=== PATIENT | female | born 1965 | race Caucasian/White ===

== ENCOUNTER 2024-10-14 18:59 | Emergency (ER) | payer MEDICARE, OTHER, SELFPAY ==
[2024-10-14 19:17] LABS: Hematocrit 33.2 % (37.0-47.0); Hemoglobin 10.4 g/dL (12.0-16.0); Mean Corp Hgb Conc. 31.3 g/dL (33.0-37.0); Mean Corpuscular Volume 91.5 fL (81.0-99.0); Nucleated Red Blood Cells % 0 %; Platelet Count 248 10^3/uL (130-400); Red Cell Dist. Width 15.1 % (11.5-14.5)
[2024-10-14 19:43] LABS: ALT (SGPT) < 10 U/L (0-35); AST (SGOT) 14 U/L (14-36); Albumin 3.7 g/dl (3.5-5.0); Alkaline Phosphatase 66 U/L (38-126); Blood Urea Nitrogen 18 mg/dl (7-17); Calcium 9.3 mg/dl (8.4-10.2); Carbon Dioxide 29 mmol/L (22-30); Glucose 99 mg/dl (70-99); Total Protein 6.6 g/dl (6.3-8.2); eGFR > 60.00
[2024-10-14 19:48] LABS: Chloride 108 mmol/L (98-107); Potassium 4.6 mmol/L (3.5-5.1); Sodium 138 mmol/L (135-145)
[2024-10-14 22:12] VITALS: BP 127/95
[2024-10-14 23:00] VITALS: BP 119/90
[2024-10-14 23:08] VITALS: BMI 26.7
[2024-10-15] VITALS: BP 131/98
--- NOTE | 2024-10-15 00:06 | ED.GENMED ---
History of Present Illness
General
Chief Complaint: Heart Rate Problem
Source: patient
Exam Limitations: none
Time Seen by Provider: 10/14/24 23:53
Nursing documentation reviewed up to this point in time: agreed with
History of Present Illness
History of Present Illness:
59-year-old female past medical history of hypertension hyperlipidemia, Heath's disease, diabetes presenting to the emergency department today with concerns of elevated heart rate dyspnea on exertion over the past week or 2 especially worsened
today missed a dose of Eliquis and metoprolol last night. Manager Environmental is from [place]. Denies any specific chest pain.
Past History
Past History
ED Past Medical History: HTN, Hypercholesterolemia, NIDDM, Other (Diabetes, [place]'s syndrome, pituitary macroadenoma, kidney stones, anemia) and Other (Kidney stones, previous pneumonia with respiratory failure, pituitary adenoma with [place]
syndrome, diabetes, previous rib fractures)
ED Past Surgical History: and Other (. Pituitary Surgery)
Social History
Tobacco: Non-smoker
Alcohol: None
Personal:
Living: with family
Employment: Not employed
Family History
Family History: Negative Diabetes, Hypertension or CAD
Review of Systems
Review of Systems
Allergies reviewed?: Yes
All Other Systems: ROS reviewed and negative except as documented in HPI and ROS
Phy Exam
Physical Exam
Physical Exam:
GENERAL: Alert , in no apparent distress
EYE: pupils equal and reactive
NECK: Supple, no significant adenopathy.
ENT: o/p clr, mmm.
CARDIAC: Tachycardic but regular no obvious murmurs
LUNGS: Clear breath sounds bilaterally, no acute respiratory distress, no wheezes/rales/rhonchi
ABDOMEN: Soft, without focal tenderness, no r/g, no cvat
NEUROLOGICAL: Alert and oriented, no focal neuro deficits
SKIN: Warm and dry, skin intact.
MUSCULOSKELETAL: No edema, well perfused.
PSYCH: Normal and appropriate interaction.
Course
Orders/Labs/Results
Orders:
Orders
10/14/24 19:03
EKG [Electrocardiogram (*1)] Urgent
Reason for Study: Tachycardia
EKG- Treatment ONCE
10/14/24 19:09
Complete Blood Count/With Diff Urgent
Comprehensive Metabolic Panel Urgent
Free T4 Urgent
NT-proBNP Urgent
Comment: ADDED
TSH Reflex To Free T4 Urgent
Comment: ADDED
10/15/24 00:03
Chest [CR Chest - 2 Views ] Urgent
Comment:
Reason For Exam: sob
10/15/24 00:04
Add On- LAB Urgent
Tests Added?: tsh free t4
10/15/24 02:15
Metoprolol [Lopressor] 50 mg PO NOW STA
10/15/24 02:16
0.9% Sodium Chloride 1000 ml [Nss] 1,000 ml IV BOLUS
10/15/24 02:59
D-Dimer Urgent
Abnormal Lab Results
10/14/24
19:09
WBC 4.5 L 10^3/uL
(4.8-10.8)
RBC 3.63 L 10^6/uL
(4.20-5.40)
Hgb 10.4 L g/dL
(12.0-16.0)
Hct 33.2 L %
(37.0-47.0)
MCHC 31.3 L g/dL
(33.0-37.0)
RDW 15.1 H %
(11.5-14.5)
Monocytes % 11.2 H %
(1.7-9.3)
Chloride 108 H mmol/L
(98-107)
BUN 18 H mg/dl
(7-17)
TSH (Reflex) 0.33 L uIU/ml
(0.47-4.68)
10/14/24 19:09
10/14/24 19:09
Vital Signs
Initial and Last Documented VS:
Initial Vital Signs
Pulse Resp BP Pulse Ox
117 23 127/95 98
10/14/24 22:12 10/14/24 22:12 10/14/24 22:12 10/14/24 22:12
Last Documented Vital Signs
Pulse Resp BP Pulse Ox
114 16 112/85 96
10/15/24 04:00 10/15/24 04:00 10/15/24 04:00 10/15/24 00:30
MDM/Problems Addressed
MDM/Problems Addressed:
59-year-old female presenting with concerns of palpitations elevated heart rate dyspnea exertion over the past week or 2 somewhat worsened today did miss a dose of Eliquis and metoprolol yesterday. On arrival heart rate in the low 110s regular. No
obvious P waves but not obviously atrial fibrillation considering rhythm is regular. Patient was given additional dose of metoprolol with improving heart rate into the 90s. Otherwise remainder of workup normal D-dimer negative. Stable for close
outpatient follow-up. Return precautions given.
*Pulse Oximetry
SaO2: 95
Oxygen Mode of Delivery: Room air
Patient hypoxic: no (96)
*Critical Care Note
Total Time (30-74mins, 75-104mins- exclusive of procedures): Not Applicable
ED Attending Note
-
Portions of this chart may have been created with voice recognition software.� Occasional wrong word or��sound alike� substitutions may have occurred due to the inherent limitations of voice recognition software.
Discharge Plan
Departure
Patient Disposition: Home (Routine Discharge)
Date of Disposition: 10/15/24
Time of Disposition: 05:18
Patient with high blood pressure during this ER visit?: No
Condition: Good
Covid-19: Not Applicable
Discharge Problem:
Heart palpitations
Instructions: Palpitations (DC)
Prescriptions:
No Action
alprazolam 0.5 MG tablet
0.025 mg PO PRN PRN (Reason: as needed)
Patient Comments:
sometimes takes 1/2 to whole tablet
citalopram 20 MG tablet
40 mg PO DAILY
famotidine [Acid Book Shelver (famotidine)] 20 MG tablet
20 mg PO DAILY
ibuprofen 200 MG tablet
400 mg PO Q4HPRN PRN (Reason: pain)
lisinopril [Prinivil] 40 MG tablet
40 mg PO DAILY
metformin [Fortamet] 500 MG tablet extended release 24hr
500 mg PO DAILY
Cardizem 180 MG
180 mg PO DAILY
Synthroid: 125 MCG
125 mcg PO DAILY
famotidine 20 MG tablet
20 mg PO BID Qty: 28 0RF
Rx Instructions:
Take 20 mg twice a day for 14 days
ascorbic acid (vitamin C) [Vitamin C] 500 MG tablet
1,000 mg PO BID Qty: 56 0RF
Rx Instructions:
Take 1,000 mg twice a day for 14 days
aspirin 81 MG tablet,chewable
81 mg PO DAILY Qty: 14 0RF
Rx Instructions:
Take 81 mg daily for 14 days
zinc sulfate 220 MG capsule
220 mg PO DAILY Qty: 14 0RF
Rx Instructions:
Take 220 mg daily for 14 days
cholecalciferol (vitamin D3) 1,000 UNITS tablet
2,000 units PO DAILY Qty: 28 0RF
Rx Instructions:
Take 2,000 units daily for 14 days
melatonin 5 MG tablet
5 mg PO HS Qty: 14 0RF
Rx Instructions:
Take 5 mg daily at bedtime for 14 days
Referrals:
Amber Blair MD [Family Provider, Family Practice]
Activity Restrictions/Additional Instructions:
You came to the emergency department today with concerns of palpitations. Here had reassuring assessment with improving heart rate after receiving additional medications. 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 Return for any worsening,
new or concerning symptoms.
Interventions
Interventions:
*Risk Screen - Suicide Last Done: 10/14/24 19:01
*General Assessment Last Done: 10/14/24 19:01
*Neglect/Abuse Screening Last Done: 10/14/24 19:01
*ED- Fall Risk Assessment Last Done: 10/14/24 19:01
*ED COVID-19 Vaccine History Last Done: 10/14/24 19:01
ED- Cardiac Assessment Last Done: 10/14/24 23:08
ED- Pulmonary Assessment Last Done: 10/14/24 23:08
Discharge Date and Time
Print Language: SCOTTISH
[2024-10-15 01:00] VITALS: BP 113/88
[2024-10-15 02:01] VITALS: BP 135/99
[2024-10-15] MEDS: NSS 1000 IV (03:05)
[2024-10-15] MEDS: LOPRESSOR 50 MG PO (03:05)
[2024-10-15 03:26] LABS: D-Dimer < 0.27 ug/mlFEU (0.00-0.50)
[2024-10-15 04:00] VITALS: BP 112/85
[2024-10-15 05:00] VITALS: BP 115/89
== END 2024-10-15 06:04 | disposition home or self-care (01) ==
LOC: EMR 18:59
PROVIDERS: Emergency Medicine; Physician Assistant; EMERGENCY PHYSICIAN Emergency Medicine; FAMILY PHYSICIAN Family Medicine
DX: R00.2 Palpitations (principal); I10 Essential (primary) hypertension; E78.00 Pure hypercholesterolemia, unspecified; E11.9 Type 2 diabetes mellitus without complications; Z86.018 Personal history of other benign neoplasm; Z87.442 Personal history of urinary calculi; E24.9 Cushing's syndrome, unspecified; D64.9 Anemia, unspecified
CPT/HCPCS: 99283; 96360; 71046; 80053; 83880; 84439; 84443; 85025; 85379; 93005